=== PATIENT | female | born 1965 ===

== ENCOUNTER 2021-12-14 10:26 | Day surgery (SDC) | payer OTHER ==
[~2021-12-14 10:26] MED LIST: HYZAAR 100-251 EACH PO; SYNTHROID50 MCG PO
== END 2021-12-15 00:50 | disposition home or self-care (01) ==
LOC: CIR.AMB 10:26
PROVIDERS: ATTEND Obstetrics & Gynecology
DX: N84.0 Polyp of corpus uteri (principal); I10 Essential (primary) hypertension; E03.9 Hypothyroidism, unspecified; Z20.822 Contact with and (suspected) exposure to COVID-19